=== PATIENT | male | born 1945 | race Caucasian/White ===

== ENCOUNTER 2023-10-04 10:20 | Inpatient (IN) | payer OTHER ==
[~2023-10-04] VITALS: Ht 180.3 cm; Wt 104.7 kg
[~2023-10-04 10:20] MED LIST: ASPI1TAB20 PO; BRIM0.2S17 EACHEYE; GABA-339 PO; LATA0.008 EACHEYE; LORA-622 PO; LOS50T PO; METF-370 PO; PRA1C PO; PROP80CA40 PO; ROPI1TAB PO; SERT-160 PO; SIMV40TA18 PO; TIMO0.5S28 EACHEYE
[2023-10-04 11:09] VITALS: PULSE 76; RESP 76; O2SAT 97
[2023-10-04 11:17] LABS: Basophils # (auto) 0 10 ^3/uL (0-0.2); Basophils % (auto) 0.7 % (0.0-2.0); Eosinophils # (auto) 0 10 ^3/uL (0-0.8); Eosinophils % (auto) 0.7 % (0.0-7.0); Hematocrit 42.4 % (41.0-53.0); Hemoglobin 14.1 g/dL (13.5-17.5); Lymphocytes # (auto) 0.8 10 ^3/uL (0.4-5.4); Lymphocytes % (auto) 13.8 % (10.0-50.0); Mean Corpuscular Hemoglobin 28.6 pg (28.0-32.0); Mean Corpuscular Hgb Conc. 33.2 g/dL (32.0-36.0); Mean Corpuscular Volume 86.2 fL (80.0-100.0); Monocytes # (auto) 0.6 10 ^3/uL (0-1.3); Monocytes % (auto) 9.6 % (0.0-12.0); Neutrophils # (auto) 4.3 10 ^3/uL (1.6-8.6); Neutrophils % (auto) 75.2 % (37.0-80.0); Nucleated Red Blood Cells % 0.2 %; Red Blood Cells 4.92 10^6/uL (4.5-5.90); Red Cell Distribution Width 16.3 % (11.8-14.3); White Blood Cell 5.8 10^3/uL (4.4-10.8)
[2023-10-04 11:30] LABS: Chloride 110 mmol/L (98-107); Potassium 4.1 mmol/L (3.5-5.1); Sodium 144 mmol/L (136-145)
[2023-10-04 11:31] LABS: Anion Gap 9 (5-15); Carbon Dioxide 25 mmol/L (20-30)
[2023-10-04 11:32] LABS: Calcium 10.2 mg/dL (8.5-10.1)
[2023-10-04 11:36] LABS: Glucose 134 mg/dL (74-106)
[2023-10-04 11:37] LABS: BUN/Creatinine Ratio 16.1 (10.0-20.0); Blood Urea Nitrogen 18 mg/dL (9-23)
[2023-10-04] MEDS: GABAPENTIN 400 MG CAP PO ONE (11:55)
[2023-10-04] MEDS: SODIUM CHLORIDE 0.9% 500 ML IV ONE (12:59)
[2023-10-04] MEDS ORDERED: ACETAMINOPHEN 325 MG TAB PO PRN (15:15)
[2023-10-04] MEDS ORDERED: DEXTROSE (50%) 50ML SYRG IV PRN (15:45)
[2023-10-04 15:58] LABS: Triglycerides 73 mg/dL (< 150)
[2023-10-04 15:59] LABS: LDL Cholesterol 43 mg/dL (< 100)
[2023-10-04 16:00] LABS: HDL Cholesterol 45 mg/dL (40-59)
[2023-10-04 16:01] LABS: Cholesterol 108 mg/dL (< 200)
[2023-10-04] MEDS: cefTRIAXone 1GM/50ML D5W 50 ML IV ONE (16:28)
[2023-10-04] MEDS: SODIUM CHLORIDE 0.9% 1,000 ML IV SCH (16:28)
[2023-10-04 16:47] LABS: Urine Bacteria None Seen /hpf (None Seen)
[2023-10-04 17:07] LABS: Urine Blood 1+ /uL (Negative); Urine Clarity Clear (Clear); Urine Color Yellow (Yellow); Urine Hyaline Cast FEW /lpf (0 - 2); Urine Protein, UAD 1+ (Negative); Urine Urobilinogen 2 mg/dL (Negative); Urine WBC 69 /hpf (0 - 3)
[2023-10-04 17:18] LABS: Amphetamine Screen, Urine Neg (NEGATIVE)
[2023-10-04 17:19] LABS: Barbiturate Scree,Urine Neg (NEGATIVE); Benzodiazephine Screen, Urine Neg (NEGATIVE); Cannabinoid Screen, Urine Neg (NEGATIVE); Cocaine Screen, Urine Neg (NEGATIVE); Opiate Scree,Urine Neg (NEGATIVE); Phencyclidine Screen, Urine Neg (NEGATIVE)
[2023-10-04] MEDS: InsuLIN REG 1unit/0.01ml Soln (100units/ml) SC SCH (17:36)
[2023-10-04] MEDS: ACCU-CHEK COMFORT CURVE STRIP VI SCH (17:36)
[2023-10-04] MEDS ORDERED: ROPINIROLE HYDROCHLORIDE 2 MG PO SCH (18:00)
[2023-10-04] MEDS ORDERED: PRAZOSIN HCL 1 MG CAP PO SCH (18:00)
[2023-10-04] MEDS ORDERED: LATANOPROST 0.005 % OPTH(EYE) SOL 2.5ML EACHEYE SCH (18:00)
[2023-10-04] MEDS: LOSARTAN POTASSIUM 50 MG TAB PO SCH (18:15)
[2023-10-04 19:30] VITALS: PULSE 75; RESP 20; O2SAT 94
[2023-10-04] MEDS: ATORVASTATIN 20 MG TAB PO SCH (22:13)
[2023-10-04] MEDS: GABAPENTIN 300 MG CAP PO SCH (22:13)
[2023-10-04 23:38] VITALS: BP 147/60; PULSE 67; RESP 20; TEMP 98.4
[2023-10-04] MEDS ORDERED: BACL20TA PO (23:38)
[2023-10-05] VITALS (7 sets, daily range): BP systolic 114–152; BP diastolic 66–76; PULSE 61–96; RESP 18–20; TEMP 97.7–98.6; O2SAT 95–98
[2023-10-05 06:55] LABS: Basophils # (auto) 0.1 10 ^3/uL (0-0.2); Basophils % (auto) 0.8 % (0.0-2.0); Eosinophils # (auto) 0.1 10 ^3/uL (0-0.8); Eosinophils % (auto) 1.4 % (0.0-7.0); Hematocrit 38.8 % (41.0-53.0); Hemoglobin 13.2 g/dL (13.5-17.5); Lymphocytes # (auto) 1.2 10 ^3/uL (0.4-5.4); Lymphocytes % (auto) 18.9 % (10.0-50.0); Mean Corpuscular Hemoglobin 29.3 pg (28.0-32.0); Mean Corpuscular Volume 86.2 fL (80.0-100.0); Monocytes # (auto) 0.7 10 ^3/uL (0-1.3); Monocytes % (auto) 11.3 % (0.0-12.0); Neutrophils # (auto) 4.4 10 ^3/uL (1.6-8.6); Neutrophils % (auto) 67.6 % (37.0-80.0); Nucleated Red Blood Cells % 0.1 %; Red Blood Cells 4.49 10^6/uL (4.5-5.90); Red Cell Distribution Width 15.7 % (11.8-14.3); White Blood Cell 6.6 10^3/uL (4.4-10.8)
[2023-10-05] MEDS ORDERED: PATIENTS OWN MEDICATION (Timolol Maleate (Timolol Maleate Ophthalmi) 1 DROP) EACHEYE SCH (07:00)
[2023-10-05 07:07] LABS: Alanine Aminotransferase 16 U/L (7-40); Alkaline Phosphatase 109 U/L (46-116); Anion Gap 8 (5-15); BUN/Creatinine Ratio 16.5 (10.0-20.0); Blood Urea Nitrogen 13 mg/dL (9-23); Calcium 9.4 mg/dL (8.5-10.1); Carbon Dioxide 23 mmol/L (20-30); Chloride 107 mmol/L (98-107); Glucose 130 mg/dL (74-106); Potassium 3.5 mmol/L (3.5-5.1); Sodium 138 mmol/L (136-145)
[2023-10-05 07:08] LABS: Albumin 3.9 g/dL (3.2-4.8); Aspartate Aminotransferase 53 U/L (13-40); Bilirubin, Total 1.3 mg/dL (0.2-1.0); Total Protein 6.4 g/dL (5.7-8.2)
[2023-10-05] MEDS: cefTRIAXone 1GM/50ML D5W 50 ML IV SCH (09:37)
[2023-10-05] MEDS: ASPirin-EC 81 mg tab PO SCH (09:38)
[2023-10-05] MEDS: LORATADINE 10 MG TAB PO SCH (09:38)
[2023-10-05] MEDS: ENOXAPARIN SOD 40 MG/0.4 ML SYRINGE SC SCH (09:39)
[2023-10-05] MEDS ORDERED: BRIMONIDINE 0.2% OPTH Soln 5ml EACHEYE SCH (10:00)
[2023-10-05] MEDS ORDERED: PATIENTS OWN MEDICATION (Propranolol Hcl (Inderal La) 1 CAP) PO SCH (10:00)
[2023-10-05] MEDS ORDERED: PATIENTS OWN MEDICATION (Sertraline Hcl 1 TAB) PO SCH (10:00)
[2023-10-05] MEDS ORDERED: GABA300T4 PO (16:10)
[2023-10-05] MEDS ORDERED: HYDR2TAB58 PO (16:10)
[2023-10-05] MEDS ORDERED: ROPI2TAB27 PO (17:06)
[2023-10-05] MEDS: OXYCODONE W/ ACETAMINOPHEN 5/325MG TABLET PO PRN (20:03)
[2023-10-06] VITALS (7 sets, daily range): BP systolic 123–138; BP diastolic 60–79; PULSE 60–78; RESP 16–18; TEMP 97.5–98.7; O2SAT 94–97
[2023-10-06] MEDS: DOXYCYCLINE 100 MG TAB/CAP PO ONE (11:50)
[2023-10-06] MEDS: DOXYCYCLINE 100 MG TAB/CAP PO SCH (21:07)
[2023-10-07 01:00] VITALS: BP 104/68; PULSE 73; RESP 19; TEMP 98.6; O2SAT 95
[2023-10-07 05:00] VITALS: BP 115/53; PULSE 68; RESP 19; TEMP 98.5; O2SAT 95
[2023-10-07 09:00] VITALS: BP 131/68; PULSE 65; RESP 18; TEMP 97.9; O2SAT 94
[2023-10-07] MEDS ORDERED: DOXY1CAP57 PO (10:39)
[2023-10-07] MEDS ORDERED: GABA300C PO (10:39)
[2023-10-07] MEDS ORDERED: PERCOT PO (10:39)
[2023-10-07 11:43] VITALS: BP 131/68
== END 2023-10-07 12:45 | disposition home health service (06) | DRG 917 ==
LOC: ER 10:20 → EDBD 10:20 → OVERFLOW 15:33 → WEST WING 23:26
PROVIDERS: ADMIT Nurse Practitioner Family; ATTEND Internal Medicine Geriatric Medicine
DX: T40.601A Poisoning by unspecified narcotics, accidental (unintentional), initial encounter (principal); G92.8 Other toxic encephalopathy; I10 Essential (primary) hypertension; E66.01 Morbid (severe) obesity due to excess calories; G60.9 Hereditary and idiopathic neuropathy, unspecified; E11.40 Type 2 diabetes mellitus with diabetic neuropathy, unspecified; E78.00 Pure hypercholesterolemia, unspecified; L60.0 Ingrowing nail; R33.9 Retention of urine, unspecified; N32.89 Other specified disorders of bladder; Z68.32 Body mass index [BMI] 32.0-32.9, adult; Z88.0 Allergy status to penicillin; Z79.899 Other long term (current) drug therapy; Z79.82 Long term (current) use of aspirin; Z86.73 Personal history of transient ischemic attack (TIA), and cerebral infarction without residual deficits; Y92.89 Other specified places as the place of occurrence of the external cause
CPT/HCPCS: 36415; 71045; 80048; 80053; 80061; 80307; 81001; 82607; 82962; 83036; 83880; 84443; 84484; 85025; 96360; 97163; G0378; J1815